=== PATIENT | male | born 1970 | race Caucasian/White ===

== ENCOUNTER 2021-07-12 15:31 | Emergency (ER) | payer OTHER ==
[~2021-07-12] VITALS: Ht 177.8 cm; Wt 93.9 kg
[2021-07-12] MEDS ORDERED: HYDROCHLOROTHIA25 M1 PO (15:42)
[2021-07-12] MEDS ORDERED: NORVASC10 MG PO (15:42)
[2021-07-12] MEDS ORDERED: COZAAR 25 MG TA25 M1 PO (15:42)
[2021-07-12 16:11] LABS: ABSOLUTE BASOPHILS 0.2 thou/uL (0.0-0.2); ABSOLUTE EOSINOPHILS 0.2 thou/uL (0.0-0.7); ABSOLUTE LYMPHOCYTES 1.7 thou/uL (0.8-5.3); ABSOLUTE MONOCYTES 1.1 thou/uL (0.0-1.2); ABSOLUTE NEUTROPHILS 9.6 thou/uL (1.6-8.1); BASOPHILS 1.2 %; EOSINOPHILS 1.7 %; HEMATOCRIT 40.5 % (42.0-52.0); HEMOGLOBIN 13.9 gm/dL (14.0-18.0); LYMPHOCYTES 13.3 %; MCH 29.2 pg (26.0-34.0); MCHC 34.2 g/dL (28.0-37.0); MCV 85.3 fL (80.0-100.0); MONOCYTES 8.6 %; MPV 7.3 fl. (7.2-11.1); NUCLEATED RBCS 0 /100WBC; PLATELET COUNT* 396 thou/uL (150-400); POLYS 75.2 %; RBC 4.75 mil/uL (4.50-6.00); RDW-CV 14.1 % (10.5-14.5); WBC 12.8 thou/uL (4.0-11.0)
[2021-07-12 16:17] LABS: CALCIUM 8.8 mg/dL (8.5-10.1); CREATININE 1.1 mg/dL (0.6-1.3); POTASSIUM 3.3 mmol/L (3.5-5.1)
[2021-07-12 16:22] LABS: ALBUMIN 3.3 g/dL (3.4-5.0); TOTAL BILIRUBIN 0.2 mg/dL (<0.1-1.0); TOTAL PROTEIN 7.4 g/dL (6.4-8.2)
[2021-07-12] MEDS ORDERED: HYDROCODON-ACE1 EAC7 PO (18:36)
[2021-07-12] MEDS ORDERED: DOXYCYCLINE 10100 M2 PO (18:39)
[2021-07-12 18:45] VITALS: BP 124/68
== END 2021-07-12 18:46 | disposition home or self-care (01) ==
LOC: M.ERS 15:31
PROVIDERS: Physician Assistant
DX: K40.91 Unilateral inguinal hernia, without obstruction or gangrene, recurrent (principal); N49.2 Inflammatory disorders of scrotum; I10 Essential (primary) hypertension; F17.210 Nicotine dependence, cigarettes, uncomplicated; Z79.899 Other long term (current) drug therapy; Z88.0 Allergy status to penicillin